=== PATIENT | female | born 1960 | race Caucasian/White ===

== ENCOUNTER → 2018-04-08 | Outpatient (CLI) | payer OTHER | LOC: COL.RAD 06:30 | DX: R11.2 Nausea with vomiting, unspecified (principal) | CPT/HCPCS: A9541 ==

== ENCOUNTER → 2018-05-03 | Outpatient (CLI) | payer OTHER | LOC: COL.RAD 10:00 | DX: R19.7 Diarrhea, unspecified (principal); R12 Heartburn; R11.2 Nausea with vomiting, unspecified | CPT/HCPCS: A9537 ==